=== PATIENT | male | born 1970 | race Caucasian/White ===

== ENCOUNTER 2017-10-15 11:56 | Emergency (ER) | payer OTHER ==
[~2017-10-15] VITALS: Ht 180.3 cm; Wt 83.0 kg
[2017-10-15 12:53] LABS: BASO # 0.1 10*3/uL (0.0-0.1); BASO % 0.3 % (0.0-1.0); EOS # 0.1 10*3/uL (0.0-0.4); EOS % 0.6 % (1.0-4.0); HEMATOCRIT 44.7 % (42.0-52.0); HEMOGLOBIN 15.3 g/dl (14.0-18.0); LYMPH # 1.9 10*3/uL (1.3-4.4); LYMPH % 12.6 % (27.0-41.0); MEAN CELL VOLUME 86.5 fl (80.0-94.0); MEAN CORPUSCULAR HGB 29.6 pg (27.0-31.0); MEAN CORPUSCULAR HGB CONC 34.2 g/dl (33.0-37.0); MEAN PLATELET VOLUME 11.3 fl (9.6-12.3); MONO # 0.8 10*3/uL (0.1-1.0); MONO % 5.6 % (3.0-9.0); NEUT # 11.8 10*3/uL (2.3-7.9); NEUT % 80.5 % (47.0-73.0); PLATELET COUNT AUTOMATED 237 10*3/uL (130-400); RED BLOOD COUNT 5.17 10*6/uL (4.50-5.90); RED CELL DISTRI WIDTH 12.2 % (0-14.5); WHITE BLOOD COUNT 14.7 10*3/uL (4.8-10.8)
[2017-10-15 13:02] LABS: ACT PARTIAL THROMBO TIME 20.9 SECONDS (20.8-31.5); INTERNATIONAL NORM RATIO 0.9 (2.0-3.5)
[2017-10-15 13:11] LABS: ALBUMIN 4.2 gm/dl (3.1-4.5); ALKALINE PHOSPHATASE 77 U/L (45-117); BUN 17 mg/dl (7-24); CHLORIDE 106 mmol/L (98-107); CREATININE 1.37 mg/dL (0.70-1.30); POTASSIUM 3.9 mmol/L (3.5-5.1); SGOT/AST 19 IU/L (3-35); SGPT/ALT 21 U/L (12-78); SODIUM 139 mmol/L (136-145); TOTAL PROTEIN 7.6 gm/dL (6.4-8.2)
[2017-10-15 13:19] LABS: ACETAMINOPHEN (TYLENOL) < 2.0 ug/ml (10-30); ETHYL ALCOHOL < 3.0 mg/dl (<3)
[2017-10-15] MEDS ORDERED: NAPROSYN500 MG PO (14:39)
[2017-10-15] MEDS ORDERED: CHLORZOXAZONE500 M2 PO (14:39)
== END 2017-10-15 15:02 | disposition home or self-care (01) ==
LOC: ED 11:56
PROVIDERS: Nurse Practitioner Family
DX: S06.0X0A Concussion without loss of consciousness, initial encounter (principal); S30.811A Abrasion of abdominal wall, initial encounter; S80.211A Abrasion, right knee, initial encounter; M54.2 Cervicalgia; M54.5 Low back pain; M25.552 Pain in left hip; Z88.0 Allergy status to penicillin; Z88.3 Allergy status to other anti-infective agents; Y04.0XXA Assault by unarmed brawl or fight, initial encounter; Y93.89 Activity, other specified; Y92.89 Other specified places as the place of occurrence of the external cause; Y99.9 Unspecified external cause status

== ENCOUNTER 2018-05-08 12:20 | Emergency (ER) | payer OTHER ==
[~2018-05-08] VITALS: Ht 180.3 cm; Wt 84.4 kg
[~2018-05-08 12:20] MED LIST: CHLORZOXAZONE500 M2 PO; NAPROSYN500 MG PO
[2018-05-08] MEDS ORDERED: MEDROL DOSEPAK4 MG PO (14:46)
[2018-05-23] MEDS ORDERED: DEPAKOTE500 MG PO (11:01)
[2018-05-23] MEDS ORDERED: CALCIUM 600 MG1 EACH PO (11:02)
[2018-05-23] MEDS ORDERED: CYMBALTA30 MG PO (11:03)
[2018-05-23] MEDS ORDERED: PHENOBARBITAL32.4 M2 PO (11:03)
[2018-05-23] MEDS ORDERED: DILANTIN100 MG PO (11:04)
[2018-05-23] MEDS ORDERED: OMEPRAZOLE20 M2 PO (11:04)
[2018-05-23] MEDS ORDERED: PROPRANOLOL HYD80 M1 PO (11:05)
== END 2018-05-08 14:57 | disposition home or self-care (01) ==
LOC: ED 12:20
DX: M25.511 Pain in right shoulder (principal); G20 Parkinson's disease; F17.200 Nicotine dependence, unspecified, uncomplicated; Z88.0 Allergy status to penicillin; Z88.1 Allergy status to other antibiotic agents; Z79.899 Other long term (current) drug therapy; X58.XXXA Exposure to other specified factors, initial encounter; Y93.89 Activity, other specified; Y92.89 Other specified places as the place of occurrence of the external cause; Y99.8 Other external cause status

== ENCOUNTER → 2018-05-23 | Outpatient (CLI) | payer OTHER ==
[~2018-05-23] MED LIST changes: +CALCIUM 600 MG1 EACH PO; +CYMBALTA30 MG PO; +DEPAKOTE500 MG PO; +DILANTIN100 MG PO; +MEDROL DOSEPAK4 MG PO; +OMEPRAZOLE20 M2 PO; +PHENOBARBITAL32.4 M2 PO; +PROPRANOLOL HYD80 M1 PO
--- NOTE | ~2018-05-23 | ST ---
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 No clinical or electrocardiographic changes noted and all the segments of the left ventricle that were contracted were both rested on lower level exercise and also peak exercise. No segmental wall motion abnormalities noted. Systolic ejection fraction of the left ventricle is normal. On stress electrocardiogram, no changes noted indicating myocardial ischemia. DEVI CHRISTY MD CM:STRESS:EXERCISE STRESS TEST REPORT [id number] DEVI CHRISTY MD [facility]
--- NOTE | 2018-05-23 11:45 | NUR ---
INFORMED CONSENT OBTAINED FOR DOBUTAMINE STRESS ECHO WITH DR. CHRISTY. RESTING EKG ATRIAL PACED WITH A SUPINE HR OF 72 AND BP OF 88/60. PT COMPLETED 10:26 OF DOBUTAMINE 3:00 PROTOCOL. COMPLETED 1:26 OF STAGE IV AT 40 MCG/KG/MIN. REACHED A PEAK HR OF 151 WHICH IS 87% OF PREDICTED MAX AND A PEAK BP OF 148/50. IN STAGE II STARTED ISOMETRIC HAND EXERCISES AND STARTING IN STAGE III PERFORMED LEG EXERCISES WITH ASSISTANCE. HAD NO CHEST PAIN OR ANY EKG CHANGES. HAD NO COMPLAINTS OF ANY DISCOMFORT WITH DOBUTAMINE INFUSION. NEGATIVE DOBUTAMINE STRESS ECHO. SEE DICTATION FOR FULL REPORT. LAST RECOVERY HR OF 94 WITH BP OF 120/62. MADE FOLLOW UP APPOINTMENT TO SEE DR. CHRISTY ON May. DISCHARGED IN STABLE CONDITION WITH SISTER.
== END | disposition home or self-care (01) ==
LOC: CARD 05-09 00:18
DX: R06.02 Shortness of breath (principal); R07.9 Chest pain, unspecified; R53.83 Other fatigue

== ENCOUNTER 2018-11-03 15:15 | Emergency (ER) | payer OTHER ==
--- NOTE | ~2018-11-03 | EKG ---
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
--- NOTE | ~2018-11-03 | EKG ---
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
[2018-11-03 15:29] LABS: BASO % 0.4 % (0.0-1.0); EOS # 0.2 10*3/uL (0.0-0.4); EOS % 1.5 % (1.0-4.0); HEMATOCRIT 42.7 % (42.0-52.0); HEMOGLOBIN 14.6 g/dl (14.0-18.0); LYMPH # 2.9 10*3/uL (1.3-4.4); LYMPH % 27.6 % (27.0-41.0); MEAN CELL VOLUME 89.9 fl (80.0-94.0); MEAN CORPUSCULAR HGB 30.7 pg (27.0-31.0); MEAN CORPUSCULAR HGB CONC 34.2 g/dl (33.0-37.0); MEAN PLATELET VOLUME 11.6 fl (9.6-12.3); MONO # 0.6 10*3/uL (0.1-1.0); MONO % 5.6 % (3.0-9.0); NEUT # 6.8 10*3/uL (2.3-7.9); NEUT % 64.7 % (47.0-73.0); PLATELET COUNT AUTOMATED 234 10*3/uL (130-400); RED BLOOD COUNT 4.75 10*6/uL (4.50-5.90); RED CELL DISTRI WIDTH 12.2 % (0-14.5); WHITE BLOOD COUNT 10.5 10*3/uL (4.8-10.8)
[2018-11-03 15:41] LABS: ACT PARTIAL THROMBO TIME 25.4 SECONDS (20.0-32.1); INTERNATIONAL NORM RATIO 0.9 (2.0-3.5)
[2018-11-03 15:49] LABS: ALBUMIN 3.5 gm/dl (3.1-4.5); ALKALINE PHOSPHATASE 65 U/L (45-117); BUN 14 mg/dl (7-24); CHLORIDE 106 mmol/L (98-107); CREATININE 1.02 mg/dL (0.70-1.30); POTASSIUM 3.9 mmol/L (3.5-5.1); SGOT/AST 33 IU/L (3-35); SGPT/ALT 36 U/L (12-78); SODIUM 139 mmol/L (136-145)
[2018-11-03 15:52] LABS: TROPONIN I < 0.015 ng/ml (<0.045)
[2018-11-03 16:07] LABS: PHENOBARBITAL (LUMINAL) 6.6 ug/ml (15-40); VALPROIC ACID (DEPAKENE) 57.4 ug/ml (50-100)
== END 2018-11-04 00:01 | disposition short-term general hospital (02) ==
LOC: ED 15:15
PROVIDERS: Emergency Medicine
DX: R56.9 Unspecified convulsions (principal); M25.511 Pain in right shoulder; M54.5 Low back pain; R20.2 Paresthesia of skin; R42 Dizziness and giddiness; R53.83 Other fatigue; R79.1 Abnormal coagulation profile; F12.90 Cannabis use, unspecified, uncomplicated; F17.200 Nicotine dependence, unspecified, uncomplicated; Z79.899 Other long term (current) drug therapy; Z88.0 Allergy status to penicillin; Z88.1 Allergy status to other antibiotic agents; W19.XXXA Unspecified fall, initial encounter; Y93.89 Activity, other specified; Y92.89 Other specified places as the place of occurrence of the external cause; Y99.8 Other external cause status

== ENCOUNTER → 2019-05-23 | Outpatient (CLI) | payer OTHER ==
[2019-05-23 10:38] LABS: BASO # 0.1 10*3/uL (0.0-0.1); BASO % 0.6 % (0.0-1.0); EOS # 0.3 10*3/uL (0.0-0.4); EOS % 3.1 % (1.0-4.0); HEMATOCRIT 46.6 % (42.0-52.0); HEMOGLOBIN 15.1 g/dl (14.0-18.0); LYMPH # 3.5 10*3/uL (1.3-4.4); LYMPH % 43.1 % (27.0-41.0); MEAN CELL VOLUME 91.2 fl (80.0-94.0); MEAN CORPUSCULAR HGB 29.5 pg (27.0-31.0); MEAN CORPUSCULAR HGB CONC 32.4 g/dl (33.0-37.0); MEAN PLATELET VOLUME 11.2 fl (9.6-12.3); MONO # 0.4 10*3/uL (0.1-1.0); MONO % 4.8 % (3.0-9.0); NEUT # 3.9 10*3/uL (2.3-7.9); NEUT % 48.2 % (47.0-73.0); PLATELET COUNT AUTOMATED 252 10*3/uL (130-400); RED BLOOD COUNT 5.11 10*6/uL (4.50-5.90); RED CELL DISTRI WIDTH 12.3 % (0-14.5); WHITE BLOOD COUNT 8.2 10*3/uL (4.8-10.8)
[2019-05-23 11:26] LABS: BUN 17 mg/dl (7-24); CHLORIDE 107 mmol/L (98-107); CREATININE 1.13 mg/dL (0.70-1.30); POTASSIUM 4.8 mmol/L (3.5-5.1); SODIUM 142 mmol/L (136-145)
== END | disposition home or self-care (01) ==
LOC: LAB 10:03
PROVIDERS: Internal Medicine Cardiovascular Disease
DX: R00.2 Palpitations (principal)

== ENCOUNTER 2020-04-14 13:49 | Emergency (ER) | payer MEDICARE ==
[~2020-04-14] VITALS: Ht 180.3 cm; Wt 77.1 kg
[2020-04-14] MEDS ORDERED: VALTREX500 MG PO (22:24)
== END 2020-04-14 22:39 | disposition home or self-care (01) ==
LOC: ED 13:49
DX: B02.9 Zoster without complications (principal); K21.9 Gastro-esophageal reflux disease without esophagitis; Z88.0 Allergy status to penicillin; Z88.8 Allergy status to other drugs, medicaments and biological substances; Z79.899 Other long term (current) drug therapy

== ENCOUNTER → 2024-03-26 | Outpatient (CLI) | payer MEDICARE ==
[~2024-03-26] MED LIST changes: +VALTREX500 MG PO
[2024-03-26 11:18] LABS: BASO # 0.1 10*3/uL (0.0-0.1); BASO % 0.6 % (0.0-1.0); EOS # 0.2 10*3/uL (0.0-0.4); EOS % 2.4 % (1.0-4.0); HEMATOCRIT 46.2 % (42.0-52.0); MEAN CELL VOLUME 91.3 fl (80.0-94.0); MEAN CORPUSCULAR HGB 29.4 pg (27.0-31.0); MEAN CORPUSCULAR HGB CONC 32.3 g/dl (33.0-37.0); MEAN PLATELET VOLUME 10.7 fl (9.6-12.3); MONO # 0.6 10*3/uL (0.1-1.0); MONO % 6.2 % (3.0-9.0); NEUT # 5.4 10*3/uL (2.3-7.9); PLATELET COUNT AUTOMATED 303 10*3/uL (130-400); RED BLOOD COUNT 5.06 10*6/uL (4.50-5.90); RED CELL DISTRI WIDTH 12.5 % (0-14.5); WHITE BLOOD COUNT 9.7 10*3/uL (4.8-10.8)
[2024-03-26 12:00] LABS: ALKALINE PHOSPHATASE 86 U/L (46-116); BUN 16 mg/dl (9-23); CHLORIDE 106 mmol/L (98-107); CHOLESTEROL 188 mg/dL (<200); FREE T4 1.05 ng/dl (0.89-1.76); LDL CHOLESTEROL 132 mg/dL (9-159); POTASSIUM 4.6 mmol/L (3.4-5.1); SGPT/ALT 16 U/L (5-49); TOTAL PROTEIN 7.6 gm/dL (6.0-8.0); TRIGLYCERIDES 117 mg/dl (<150)
== END | disposition home or self-care (01) ==
LOC: LAB 10:52
PROVIDERS: ATTEND Internal Medicine
DX: G40.909 Epilepsy, unspecified, not intractable, without status epilepticus (principal); Z79.899 Other long term (current) drug therapy